=== PATIENT | female | born 1975 | race Caucasian/White ===

== ENCOUNTER 2019-09-03 21:46 | Emergency (ER) | payer OTHER ==
[2019-09-03] MEDS ORDERED: ONDANSETRON HCL INJ/PF 4 MG/2 ML SDV IV ONE (22:23)
[2019-09-03] MEDS ORDERED: HYDROMORPHONE HCL INJ/PF 2 MG/ML AMPULE IV ONE (22:23)
--- NOTE | 2019-09-03 22:24 | RADIOLOGY REPORT (SQ) ---
EXAM DESCRIPTION: XR FEMUR 2 VIEWS COMPLETED DATE/TME: 09/03/2019 00:00 CLINICAL HISTORY: 44 years, Female, fall COMPARISON: None. NUMBER OF VIEWS: 2 TECHNIQUE: 2 views right femur LIMITATIONS: None. FINDINGS: Proximal femur not included on the exam. As visualized no evidence for acute fracture or dislocation. Soft tissues are unremarkable IMPRESSION: Negative exam copyright 2011 [employer]- All Rights Reserved
--- NOTE | 2019-09-03 22:25 | RADIOLOGY REPORT (SQ) ---
EXAM DESCRIPTION: XR HIP 2 OR MORE VIEWS COMPLETED DATE/TME: 09/03/2019 00:00 CLINICAL HISTORY: 44 years, Female, fall COMPARISON: None. NUMBER OF VIEWS: 3 TECHNIQUE: AP pelvis 2 view right hip LIMITATIONS: None. FINDINGS: Negative for acute fracture or dislocation. Soft tissues are unremarkable IMPRESSION: Negative exam copyright 2011 [employer]- All Rights Reserved
[2019-09-03] MEDS ORDERED: NORMAL SALINE 1000 ML 1,000 ML IV ONE (22:52)
[2019-09-03] MEDS ORDERED: KETOROLAC TROMETHAMINE INJ/PF 30 MG/1 ML SDV IV ONE (22:52)
--- NOTE | 2019-09-03 22:53 | ER Document Report ---
ED Extremity Problem, Lower - General Chief Complaint: Leg Injury Stated Complaint: FALL/RIGHT LEG Time Seen by Provider: 09/03/19 22:22 Primary Care Provider: TRAY BLOOM DO [Primary Care Provider] - Follow up as needed Notes: Patient is a 44-year-old female who comes emergency department for chief complaint of right leg injury. She states she was rollerskating, she tried to step over her child in front of her, hyperextended her leg, fell to the side, hit her right hip/thigh on the ground during the fall. She reports sharp pain in this area extending from her right hip down to her distal right thigh. She denies knee injury, ankle injury, numbness, incontinence, back injury, head injury, or any other complaints. She takes no daily medications. She denies alcohol. TRAVEL OUTSIDE OF THE [place] IN LAST 30 DAYS: No - Related Data Allergies/Adverse Reactions: No Known Allergies Allergy (Unverified 09/03/19 22:20) Past Medical History - General Information source: Patient - Social History Smoking Status: Current Some Day Smoker Frequency of alcohol use: Occasional Drug Abuse: None Lives with: Family Family History: Reviewed & Not Pertinent Patient has suicidal ideation: No Patient has homicidal ideation: No Past Surgical History: Reports: Hx Cholecystectomy - Immunizations Hx Diphtheria, Pertussis, Tetanus Vaccination: Yes Review of Systems - Review of Systems Constitutional: No symptoms reported EENT: No symptoms reported Cardiovascular: No symptoms reported Respiratory: No symptoms reported Gastrointestinal: No symptoms reported Genitourinary: No symptoms reported Female Genitourinary: No symptoms reported Musculoskeletal: See HPI Skin: No symptoms reported Hematologic/Lymphatic: No symptoms reported Neurological/Psychological: No symptoms reported Physical Exam - Vital signs Vitals: Temp Pulse Resp BP Pulse Ox 98.1 F 139 H 24 H 113/80 99 09/03/19 21:49 09/03/19 21:49 09/03/19 21:49 09/03/19 21:49 09/03/19 21:49 - Notes Notes: GENERAL: Wincing, restless, appears to be in pain HEAD: Normocephalic, atraumatic. EYES: Pupils equal, round, and reactive to light. Extraocular movements intact. ENT: Oral mucosa moist, tongue midline. Oropharynx unremarkable. Airway patent. LUNGS: Clear to auscultation bilaterally, no wheezes, rales, or rhonchi. No respiratory distress. HEART: Borderline tachycardic, normal rhythm, no murmur ABDOMEN: Soft, non-tender. Non-distended. EXTREMITIES: Patient indicating pain in the right proximal anterior and lateral thigh area. Hip joint itself is nontender. Range of motion at the hip is normal, there is tenderness over the lateral anterior thigh but there is no severe tenderness or firmness, no noted ecchymosis, normal range of motion at the knee, normal distal neurovascular exam. Otherwise unremarkable. BACK: no cervical, thoracic, lumbar midline tenderness. No saddle anesthesia, normal distal neurovascular exam. NEUROLOGICAL: Alert and oriented x3. Normal speech. Cranial nerves II through XII grossly intact. PSYCH: Slightly agitated SKIN: Warm, dry, normal turgor. No rashes or lesions noted. Course - Re-evaluation Re-evalutation: Patient initially appeared to be in a lot of pain, she was treated with pain medication, after this she became slightly loopy. She was given IV fluids and Toradol, after this she significantly improved. She still has some soreness and pain to the area but she is not in any distress. She does have some tenderness over the right lateral thigh with evidence of soft tissue injury but no significant swelling or bruising. There is no rigidity or severe tenderness suggesting compartment syndrome, x-rays are negative, normal distal neurovascular exam, she is able to ambulate, normal range of motion at the hip, knee, ankle. Unremarkable otherwise. Patient declines crutches, states she has no at home, provided with medications, discussed expectations, follow-up, return cautions. Patient states appreciation and agreement. \ - Vital Signs Vital signs: Temp Pulse Resp BP Pulse Ox 98.0 F 98 20 102/65 96 09/04/19 00:46 09/04/19 00:46 09/04/19 00:46 09/04/19 00:46 09/04/19 00:46 Discharge - Discharge Clinical Impression: Right leg pain, Right hip pain Contusion of right thigh Qualifiers: Encounter type: initial encounter Qualified Code(s): S70.11XA - Contusion of right thigh, initial encounter Condition: Stable Disposition: HOME, SELF-CARE Additional Instructions: This appears to be soft tissue injury only, possibly a bony bruise as well because of your injury. There is no fracture. I recommend ice 3-4 times a day for 10 to 15 minutes for the first 24 hours, afterwards apply heat. Recommended rest, you will likely be progressively sore for the next 2 days. Take the anti-inflammatory as prescribed, take the muscle x-ray as prescribed especially to help you sleep. Resume normal activity as tolerated. Follow-up with primary care for additional management. Return if you worsen including severe worsening pain or tightness of the leg, developing numbness, or any other concerning symptoms. Prescriptions: Cyclobenzaprine HCl 1 - 2 tab PO Q8H PRN #20 tablet PRN Reason: Naproxen 500 mg PO BID PRN #20 tablet PRN Reason: Forms: Return to Work Referrals: TRAY BLOOM DO [Primary Care Provider] - Follow up as needed
[2019-09-04] MEDS ORDERED: ONDANSETRON ODT 4 MG TAB (6 TAB/ER DISP) PO PRN (00:24)
[2019-09-04] MEDS ORDERED: HYDROCODONE/ACETAMINOPHEN 5-325 MG (6 TAB/ER DISP) PO PRN (00:24)
[2019-09-04 00:54] VITALS: BP 102/65
== END 2019-09-04 00:56 | disposition home or self-care (01) ==
LOC: ER 21:46
DX: S70.11XA Contusion of right thigh, initial encounter (principal); M79.604 Pain in right leg; M25.551 Pain in right hip; W18.30XA Fall on same level, unspecified, initial encounter; Y93.51 Activity, roller skating (inline) and skateboarding; F17.200 Nicotine dependence, unspecified, uncomplicated
CPT/HCPCS: 99283; 96361; 96374; 96375; 73552; 73502; J1885; J1170; J2405; J7030